=== PATIENT | female | born 2000 | race American Indian/Alaskan Native ===

== ENCOUNTER 2022-06-09 02:56 | Emergency (ER) | payer OTHER, MEDICAID ==
[2022-06-09 03:04] VITALS: BP 132/74
--- NOTE | 2022-06-09 06:28 | Emergency Department Report ---
ED Female HPI - General Chief complaint: Skin/Abscess/Foreign Body Stated complaint: FB IN VAGINA Source: patient Mode of arrival: Ambulatory Limitations: No Limitations - History of Present Illness Initial comments: Patient is a nulliparous 21-year-old -[place] female with no past medical history who presents to the ED complaining of a tampon stuck in her vagina for the last 8 hours. Patient states that she had the placed the tampon in her vagina but when she reached out to remove it she could not find it and therefore decided come to the ED for evaluation. Patient denies pelvic pain, nausea, vomiting, dysuria, urinary frequency and urgency, chest pain or shortness of breath, fever, chills, cough, sore throat, vaginal discharge or low back pain. MD Complaint: other (foreign body in vagina, tampon) -: Sudden, hour(s) (8) Location: other (vagina) Severity scale (0 -10): 0 Consistency: constant Improves with: none Worsens with: none Are you Now?: No Associated Symptoms: denies other symptoms. denies: vaginal discharge, vaginal bleeding, abdominal pain, fever/chills, headaches, dysuria, hematuria, rash, seizure, shortness of breath, syncope, other - Related Data Sexually active: Yes : 0 Para: 0 A: 0 Allergies Allergy/AdvReac Type Severity Reaction Status Date / Time No Known Allergies Allergy Verified 06/09/22 03:01 ED Review of Systems ROS: Stated complaint: FB IN VAGINA Other details as noted in HPI Constitutional: denies: chills, fever Eyes: denies: eye pain, eye discharge, vision change ENT: denies: ear pain, throat pain Respiratory: denies: cough, shortness of breath, wheezing Cardiovascular: denies: chest pain, palpitations Endocrine: no symptoms reported Gastrointestinal: denies: abdominal pain, nausea, vomiting, diarrhea Genitourinary: other (Foreign body stuck in the vaginal vault or canal). denies: urgency, dysuria, discharge Musculoskeletal: denies: back pain, joint swelling, arthralgia Skin: denies: rash, lesions Neurological: denies: headache, weakness, paresthesias Psychiatric: denies: anxiety, depression Hematological/Lymphatic: denies: easy bleeding, easy bruising ED Physical Exam - General Limitations: No Limitations General appearance: alert, in no apparent distress - Head Head exam: Present: atraumatic, normocephalic, normal inspection - Eye Eye exam: Present: normal appearance, PERRL, EOMI Pupils: Present: normal accommodation - ENT ENT exam: Present: normal exam, normal orophraynx, mucous membranes moist, TM's normal bilaterally, normal external ear exam - Neck Neck exam: Present: normal inspection, full ROM. Absent: tenderness - Respiratory Respiratory exam: Present: normal lung sounds bilaterally. Absent: respiratory distress, wheezes, rales, stridor, chest wall tenderness, accessory muscle use, decreased breath sounds, prolonged expiratory - Cardiovascular Cardiovascular Exam: Present: regular rate, normal rhythm, normal heart sounds. Absent: systolic murmur, diastolic murmur, rubs, gallop - GI/Abdominal GI/Abdominal exam: Present: soft, normal bowel sounds. Absent: tenderness, guarding, rebound, hyperactive bowel sounds, hypoactive bowel sounds, organomegaly, mass, pulsatile mass - External exam: Present: normal external exam Speculum exam: Present: normal speculum exam, other (No foreign body in the vaginal vault, behind the cervix or vaginal canal). Absent: cervical discharge, vaginal bleeding, foreign body Bi-manual exam: Present: other (Pelvic exam in the presence of female RN armoring machine operator Ms. Cunningham) - Extremities Exam Extremities exam: Present: normal inspection, full ROM, normal capillary refill - Back Exam Back exam: Present: normal inspection, full ROM. Absent: tenderness, CVA tenderness (R), CVA tenderness (L), muscle spasm, paraspinal tenderness, vertebral tenderness - Neurological Exam Neurological exam: Present: alert, oriented X3, CN II-XII intact, normal gait, reflexes normal - Psychiatric Psychiatric exam: Present: normal affect, normal mood - Skin Skin exam: Present: warm, dry, intact, normal color. Absent: rash ED Course Vital Signs 06/09/22 02:58 Temperature 98.7 F Pulse Rate 71 Respiratory 18 Rate Blood Pressure 132/74 [Left] O2 Sat by Pulse 100 Oximetry ED Medical Decision Making - Medical Decision Making This is a nulliparous 21-year-old -[place] female with no past medical history who presents to the ED complaining of a tampon stuck in her vagina for the last 8 hours. Patient states that she had the placed the tampon in her vagina but when she reached out to remove it she could not find it and therefore decided come to the ED for evaluation. In the ED, patient is alert and oriented x3 and is not in any distress. Patient is hemodynamically stable. Physical exam is unremarkable and during the pelvic exam there was no foreign body identified in the vaginal vault or vaginal canal or behind the cervix. Patient was therefore discharged home and advised to follow-up with her primary care physician in 7 to 10 days for reevaluation or return to the ED immediately if symptoms get worse. - Differential Diagnosis Foreign body in vagina; UTI; STD; bacterial vaginosis; genital herpes Critical care attestation.: If time is entered above; I have spent that time in minutes in the direct care of this critically ill patient, excluding procedure time. ED Disposition Clinical Impression: Foreign body in vulva and vagina, initial encounter Disposition: HOME / SELF CARE / HOMELESS Is pt being admited?: No Does the pt Need Aspirin: No Condition: Stable Instructions: Vaginal Foreign Body, [id number] Additional Instructions: Pelvic exam revealed no tampon in the vaginal vault or in the vaginal canal but the presence of the IUD string. There was no tampon identified in the vaginal vault of around the cervix. Therefore follow-up with your [employer]FA[employer] physician in 3 to 5 days for reevaluation or return to the ED immediately if symptoms get worse. Referrals: [facility] [Provider Group] - 3-5 Days Forms: Work/School Release Form(ED) Time of Disposition: 06:27 Print Language: ICELANDIC
== END 2022-06-09 06:35 | disposition home or self-care (01) ==
LOC: ED 02:56
DX: T19.2XXA Foreign body in vulva and vagina, initial encounter (principal); X58.XXXA Exposure to other specified factors, initial encounter; Y93.89 Activity, other specified; Y92.89 Other specified places as the place of occurrence of the external cause; Y99.8 Other external cause status
CPT/HCPCS: 99282; 99283